=== PATIENT | male | born 1945 | race Caucasian/White ===

== ENCOUNTER 2021-07-12 13:30 | Emergency (ER) | payer OTHER ==
[~2021-07-12] VITALS: Ht 182.9 cm; Wt 100.0 kg
== END 2021-07-12 14:47 | disposition home or self-care (01) ==
LOC: ER 13:30 → EEVIPCON 13:30 → ER 14:47
DX: Z77.21 Contact with and (suspected) exposure to potentially hazardous body fluids (principal)
CPT/HCPCS: 99281

== ENCOUNTER 2024-12-21 10:46 | Outpatient (CLI) | payer MEDICARE, OTHER | END 2024-12-21 23:59 | disposition home or self-care (01) | LOC: RAD 10:46 | PROVIDERS: ATTEND Internal Medicine Critical Care Medicine | DX: M16.12 Unilateral primary osteoarthritis, left hip (principal); M25.752 Osteophyte, left hip; M21.852 Other specified acquired deformities of left thigh; M25.552 Pain in left hip; K57.30 Diverticulosis of large intestine without perforation or abscess without bleeding; K40.90 Unilateral inguinal hernia, without obstruction or gangrene, not specified as recurrent | CPT/HCPCS: 72192; 73700 ==